=== PATIENT | male | born 1980 | race Caucasian/White ===

== ENCOUNTER 2023-07-09 22:49 | Inpatient (IN) ==
--- NOTE | 2023-07-09 23:18 | Emergency Department Note ---
Impression & Plan Tonsillar abscess, Acute epiglottitis Admit to the [facility] ED Provider Note NAME: MARLENY ALVAREZ AGE: 42 SEX: Male INFORMANT: Patient ED PROVIDER(S): Etelvina Cleaning DO CHIEF COMPLAINT: Enlarged left neck lymph node PLAN: Disposition: Admit to the [facility] MEDICAL DECISION MAKING: this is a 42-year-old male patient who presents to the emergency department with an enlarged lymph node in the left neck. He does describe it is uncomfortable to swallow. Mother noted that his voice was somewhat different. He describes feeling somewhat tired. He has a mild leukocytosis. H&H are stable. Renal function is normal. Electrolytes were unremarkable. Glucose was normal. Ultrasound of the neck showed lymphadenopathy could be reactive versus metastatic. The patient went on to have CT scan of the soft tissues of the neck along with the chest. This revealed evidence of a tonsillar abscess on the left with some involvement of the epiglottis. Patient was given IV Decadron along with IV Rocephin. The patient was monitored closely and had absolutely no respiratory distress Care/management discussed with: manager marketing communications and [facility] Triage Nursing notes: reviewed and agree with them. Vital Signs: reviewed and remarkable for tachycardia Differential Diagnosis: Reactive lymph adenopathy, thyroid mass, tonsillitis, URI, sinus infection, tonsillar abscess Diagnostics, independently interpreted by me: Imaging studies: Soft tissue neck ultrasound: As per stat rad Soft tissue neck CT: As per stat rad CT scan of the chest: As per stat rad HPI: 42 year old Male arrives for evaluation of left neck enlarged lymph node. Patient noted an enlarged gland on the left side of his neck. Has been feeling tired over the past couple of days. He describes it as feeling uncomfortable when he swallows. His mother noted that his voice sounded different and he had some significant nasal congestion. PAST MEDICAL HISTORY: None, SOCIAL HISTORY: The patient lives alone. He smoked 1 and half packs of cigarettes a day for about 10 years HOME MEDICATIONS: See list ALLERGIES: None VITALS: See Below PHYSICAL EXAMINATION: HEENT: Head - normocephalic and atraumatic. Pupils are equal, round, and reactive to light. Extraocular eye muscles are intact, and sclera are anicteric. Nose - moist nasal mucosa without discharge. Mouth - moist buccal mucosa. Oropharynx is mildly erythematous. There are some mild fullness noted to the left tonsillar pillar but no obvious edema or postnasal drip noted. Neck: Supple; no nuchal rigidity. There is a large left anterior cervical lymph node at the top of the chain easily palpable and mobile. There are no supraclavicular nodes palpated. There were no axillary nodes palpated. Heart: Tachycardic rate and regular rhythm. There is a normal S1 and S2 with no murmurs, clicks, or gallops appreciated. Lungs: Clear to auscultation bilaterally with no wheezes, rales, or rhonchi. Abdomen: Soft, completely nontender, nondistended, with good bowel sounds. There are no palpable pulsatile masses or hepatosplenomegaly. There is no guarding, rigidity, or rebound noted. Extremities: No evidence of cyanosis, clubbing, or edema. There are easily palpable peripheral pulses. Skin: warm and dry with good turgor and no rashes. Emergency department treatment: staff midwife/apprenticeship director, IV Decadron, IV normal saline bolus, IV normal saline drip, IV Rocephin Emergency department course: The patient was evaluated in room C6. A complete history and physical was performed. An IV lock was initiated and labs were drawn as above. Patient had a soft tissue neck ultrasound as described above. I reviewed laboratory studies and ultrasound results with the patient. He then went on to have a CT scan of the soft tissues of the neck and chest. Patient was bolused with IV normal saline solution. He was given a dose of IV Decadron. He was given a dose of IV Rocephin. He was placed on an IV normal saline drip. I discussed the case with the [facility] Hospitalist. Past Med/Surg History Medical History (Updated 07/10/23 @ 13:25 by Etelvina Cleaning DO) Health care maintenance No significant past medical history Surgical History H/O oral surgery History of biopsy tongue H/O tooth extraction wisdom teeth Family History Grandmother (Maternal) Carotid artery stenosis Hyperlipidemia Hyperthyroidism Grandfather (Maternal) No problems noted. Grandmother (Paternal) Colorectal cancer Grandfather (Paternal) Coronary heart disease Colorectal cancer Father Hyperlipidemia Prostate cancer Denies family history of Ovarian cancer Myocardial infarction Breast cancer Social History Smoking Status: Former smoker Age Started Using Tobacco: 19; Hx Alcohol Use: Yes Alcohol type: beer and wine Hx Substance Use: No Preferred Language: Frisian Communication Ability: Effective Visual Impairment: No Limitations Hearing Ability: Normal Supervisor Electric Motor Testing Required: No Beliefs That Will Affect Care: None marital status: Single Current Living Situation: Alone current occupational status: employed Other Information That Helps Us Care for You: No Feels Safe at Home: Yes Safety Concerns: Feels Safe At This Time Childhood Exposure to Second-Hand Smoke: No Dental Care, Regularly: Yes Physical Activity Frequency: Does not Exercise Seatbelt Use: always Sunscreen Use: Yes Allergies Allergies Allergy/AdvReac Type Severity Reaction Status Date / Time No Known Allergies Allergy Mild Verified 03/15/23 09:13 Home Meds Home Medications Medication Instructions Recorded Confirmed No Known Home Medications 02/08/19 07/10/23 Results & Data (ED) Vital Signs Vital Signs - 24 hr 07/09/23 22:53 07/10/23 01:23 07/10/23 01:25 Temperature 36.8 C Temperature Source Temporal Artery Scan Pulse Rate 118 H Pulse Rate [Right Finger] 115 H Respiratory Rate 18 18 Respiratory Effort / Characteristics Non-Labored Spontaneous Respiratory Depth Normal Respiratory Pattern Regular Blood Pressure 165/109 H Blood Pressure [Left Arm] 171/99 H Blood Pressure [Right Arm] 181/99 H Blood Pressure Mean 127 Blood Pressure Mean [Left Arm] 123 Blood Pressure Mean [Right Arm] 126 Blood Pressure Position Sitting Blood Pressure Position [Left Arm] Semi-fowlers Blood Pressure Position [Right Arm] Semi-fowlers Pulse Oximetry 99 98 Oxygen Delivery Method Room Air Room Air Sepsis Recent Fever Within 48 Hours No Sepsis New/Unexplained Change in Mental Status N/A Sepsis Action Taken by Nursing No Action Required 07/10/23 01:54 07/10/23 02:00 07/10/23 02:30 Temperature Temperature Source Pulse Rate 113 H 94 H 85 Pulse Rate [Right Finger] Respiratory Rate 12 12 Respiratory Effort / Characteristics Respiratory Depth Respiratory Pattern Blood Pressure 159/92 H 149/88 H Blood Pressure [Left Arm] Blood Pressure [Right Arm] Blood Pressure Mean 114 108 Blood Pressure Mean [Left Arm] Blood Pressure Mean [Right Arm] Blood Pressure Position Blood Pressure Position [Left Arm] Blood Pressure Position [Right Arm] Pulse Oximetry 97 96 Oxygen Delivery Method Sepsis Recent Fever Within 48 Hours Sepsis New/Unexplained Change in Mental Status Sepsis Action Taken by Nursing 07/10/23 03:00 07/10/23 03:30 Temperature Temperature Source Pulse Rate 128 H 88 Pulse Rate [Right Finger] Respiratory Rate 17 15 Respiratory Effort / Characteristics Respiratory Depth Respiratory Pattern Blood Pressure 172/104 H 157/92 H Blood Pressure [Left Arm] Blood Pressure [Right Arm] Blood Pressure Mean 126 113 Blood Pressure Mean [Left Arm] Blood Pressure Mean [Right Arm] Blood Pressure Position Blood Pressure Position [Left Arm] Blood Pressure Position [Right Arm] Pulse Oximetry 96 96 Oxygen Delivery Method Sepsis Recent Fever Within 48 Hours Sepsis New/Unexplained Change in Mental Status Sepsis Action Taken by Nursing Laboratory Data 07/09/23 23:20 07/09/23 23:20 Lab Results 07/09/23 07/10/23 Range/Units 23:20 03:00 WBC 13.24 H (4.8-10.8) K/ul RBC 5.17 (4.70-6.10) M/uL Hgb 16.4 (14.0-18.0) g/dl Hct 46.5 (42.0-52.0) % MCV 89.9 (80.0-100.0) fL MCH 31.7 (25.0-34.0) pg MCHC 35.3 (32.0-36.0) g/dL RDW Std Deviation 39.9 (36.4-46.3) fL RDW Coeff of Sharri 12.1 (11.5-14.5) % Plt Count 286 (130-400) K/uL MPV 9.8 (9.4-12.4) fL Immature Gran % (Auto) 0.5 % Neut % (Auto) 69.5 % Lymph % (Auto) 20.5 % Reynolds % (Auto) 7.2 % Eos % (Auto) 2.0 % Baso % (Auto) 0.3 % Neut # (Auto) 9.21 H (1.40-6.50) K/uL Lymph # (Auto) 2.71 (1.20-3.40) K/uL Reynolds # (Auto) 0.95 H (0.11-0.59) K/uL Eos # (Auto) 0.26 (0.00-0.50) K/uL Baso # (Auto) 0.04 (0.00-0.20) K/uL Immature Gran # (Auto) 0.07 (0.01-0.20) K/uL Sodium 140 (136-145) mmol/L Potassium 3.5 (3.5-5.1) mmol/L Chloride 106 (98-107) mmol/L Carbon Dioxide 25 (21-32) mmol/L Anion Gap 9 (3-11) BUN 7 (6-23) mg/dl Creatinine 0.88 (0.6-1.4) mg/dl Est Cr Clr Drug Dosing 91.6 ml/min Est GFR ( Amer) 122.8 ml/min Est GFR (Non-Af Amer) 106.0 ml/min BUN/Creatinine Ratio 8.0 L (10-20) Glucose 110 H (70-99(Fasting)) mg/dl Calcium 9.3 (8.6-10.3) mg/dl Total Bilirubin 0.3 (0.2-1.0) mg/dl AST 12 L (13-39) U/L ALT 14 (7-52) U/L Alkaline Phosphatase 97 (34-104) U/L Total Protein 7.6 (6.0-8.3) gm/dl Albumin 4.3 (3.4-5.0) gm/dl Globulin 3.3 (2.5-4.0) gm/dl Albumin/Globulin Ratio 1.3 (0.9-2) Adenovirus (PCR) Not Detected (NotDetected) B. pertussis DNA (PCR) Not Detected (NotDetected) B.parapertussis DNA PCR Not Detected (NotDetected) C. pneumoniae DNA (PCR) Not Detected (NotDetected) Coronavirus OC43 (PCR) Not Detected (NotDetected) Coronavirus HKU1 (PCR) Not Detected (NotDetected) Coronavirus 229E (PCR) Not Detected (NotDetected) SARS-CoV-2 (PCR) Not Detected (NotDetected) Coronavirus NL63 (PCR) Not Detected (NotDetected) Human Metapneumovir PCR Not Detected (NotDetected) Influenza Type A (PCR) Not Detected (NotDetected) Influenza Type B (PCR) Not Detected (NotDetected) M. pneumoniae (PCR) Not Detected (NotDetected) Parainfluenza 1 (PCR) Not Detected (NotDetected) Parainfluenza 2 (PCR) Not Detected (NotDetected) Parainfluenza 3 (PCR) Not Detected (NotDetected) Parainfluenza 4 (PCR) Not Detected (NotDetected) RSV (PCR) Not Detected (NotDetected) Entero/Rhino (PCR) Not Detected (NotDetected) Administered Medications Sodium Chloride (Nss) 500 mls @ 125 mls/hr IV .Q4H [facility] Stop: 08/09/23 02:59 Last Admin: 07/10/23 10:46 Dose: 125 mls/hr Documented By: Infusion: 07/10/23 10:46 Dose: Infused Documented By: Admin: 07/10/23 08:09 Dose: 125 mls/hr Documented By: Infusion: 07/10/23 08:09 Dose: Infused Documented By: Admin: 07/10/23 04:15 Dose: 125 mls/hr Documented By: ALYSE Potassium Chloride/Sodium Chloride (Normal Saline W/20 Meq Kcl) 20 meq in 1,000 mls @ 100 mls/hr IV .Q10H [facility]; Protocol Stop: 08/09/23 03:59 Last Admin: 07/10/23 04:29 Dose: 100 mls/hr Documented By: ALYSE Azithromycin 500 mg/ Dextrose 255 mls @ 125 mls/hr IV Q24H [facility] Stop: 07/20/23 03:59 Last Infusion: 07/10/23 06:42 Dose: Infused Documented By: Admin: 07/10/23 04:30 Dose: 125 mls/hr Documented By: ALYSE Ampicillin Sodium/Sulbactam Sodium 3,000 mg/ Sodium Chloride 100 mls @ 100 mls/hr IV Q6H [facility] Stop: 07/20/23 06:59 Last Admin: 07/10/23 13:05 Dose: 100 mls/hr Documented By: Infusion: 07/10/23 09:16 Dose: Infused Documented By: NRLeora Admin: 07/10/23 08:09 Dose: 100 mls/hr Documented By: MILENA Dexamethasone 6 mg/ Syringe 1.5 mls @ 1 mls/min IV Q8H [facility] Stop: 08/09/23 07:59 Last Admin: 07/10/23 08:08 Dose: 1 mls/min Documented By: MILENA Discontinued Medications Dexamethasone Sodium Phosphate (DexamethasonePf 10 Mg/Ml Vial) 10 mg IV NOW ONE Stop: 07/10/23 02:52 Last Admin: 07/10/23 03:01 Dose: 10 mg Documented By: ALYSE Sodium Chloride (Nss) 500 mls @ 999 mls/hr IV .Q31M ONE Stop: 07/10/23 03:21 Last Infusion: 07/10/23 03:56 Dose: Infused Documented By: Admin: 07/10/23 03:02 Dose: 999 mls/hr Documented By: ALYSE Ceftriaxone Sodium (Rocephin) 1,000 mg in 50 mls @ 100 mls/hr IV NOW STA Stop: 07/10/23 03:32 Last Infusion: 07/10/23 04:49 Dose: Infused Documented By: Admin: 07/10/23 04:16 Dose: 100 mls/hr Documented By: ALYSE Ioversol (Optiray 320 500ml) 100 ml IV ONCE ONE Stop: 07/10/23 01:56 Last Admin: 07/10/23 01:56 Dose: 84 ml Documented By: TOMEKA Imaging Data Radiologist's Impression: Chest CT 07/10/23 01:26 Exam(s): CT CHEST With Contrast IV Amt: 84 ML OPTIRAY 320 EXAM: CT Chest With Intravenous Contrast CLINICAL HISTORY: eval for lymphadenopathy or pulm pathology. TECHNIQUE: Axial computed tomography images of the chest with intravenous contrast. Automated exposure control was utilized for the study. A dose lowering technique was utilized adhering to the principles of ALARA. CONTRAST: Patient received 84 ML OPTIRAY 320 of IV contrast COMPARISON: No relevant prior studies available. FINDINGS: Lungs: No focal consolidation. No mass. Pleural space: Unremarkable. No pneumothorax. No significant effusion. Heart: Unremarkable. No cardiomegaly. No significant pericardial effusion. No significant coronary artery calcifications. Bones/joints: Unremarkable. No acute fracture. No dislocation. Soft tissues: Unremarkable. Vasculature: Unremarkable. No thoracic aortic aneurysm. Lymph nodes: The left supraclavicular lymphadenopathy is not identified on this examination. No axillary, mediastinal or hilar lymphadenopathy noted. IMPRESSION: No significant abnormality identified involving the chest/thorax. Please see the CT report of the cervical soft tissues for further significant findings. Electronically signed by: Ryley Luke MD 07/10/23 02:46 AM Soft Tissue Neck CT 07/10/23 01:26 CR Exam(s): CT NECK With Contrast IV Amt: 84 ML OPTIRAY 320 EXAM: CT Neck With Intravenous Contrast CLINICAL HISTORY: eval lymphadenopathy vs. abnormal nodes. TECHNIQUE: Axial computed tomography images of the neck with intravenous contrast. Automated exposure control was utilized for the study. A dose lowering technique was utilized adhering to the principles of ALARA. CONTRAST: Patient received 84 ML OPTIRAY 320 of IV contrast COMPARISON: No relevant prior studies available. FINDINGS: Oropharynx: There is a rim-enhancing left tonsillar abscess, measuring 1.2 cm in diameter. Both palatine tonsils are enlarged. No peritonsillar inflammatory changes. Hypopharynx: Unremarkable. Larynx: There is hypodense thickening of the anterior aspect of the epiglottis, measuring up to 13 mm in diameter (series 601; images 40-45). Trachea: Unremarkable. Retropharyngeal space: Unremarkable. Submandibular/parotid glands: Unremarkable. Glands are normal in size. Thyroid: Unremarkable. No enlarged or calcified nodules. Bones/joints: No acute fracture. Soft tissues: Unremarkable. Vasculature: No acute findings. Lymph nodes: Left anterior and posterior cervical chain enlarged lymph nodes measuring up to 15 mm in short axis diameter. Lung apices: Unremarkable as visualized. Other findings: The parapharyngeal spaces are maintained. IMPRESSION: 1. There is a rim-enhancing left tonsillar abscess, measuring 1.2 cm in diameter. 2. There is hypodense thickening of the anterior aspect of the epiglottis, measuring up to 13 mm in diameter (series 601; images 40-45). This is presumed edema from the adjacent enlarged tonsils. However, this finding is concerning for impending airway compromise. Consider urgent ENT consultation, as indicated. 3. Left anterior and posterior cervical chain enlarged lymph nodes measuring up to 15 mm in short axis diameter. Presumed reactive from the left tonsillar process. Communications: Verify Receipt Electronically signed by: Ryley Luke MD 07/10/23 02:44 AM Discharge Plan Visit Data Chief Complaint: Throat Pain Stated Complaint: ISSUES SWALLOWING ED Provider: Etelvina Cleaning Discharge Problem: Tonsillar abscess, Acute epiglottitis Patient Disposition: Admitted As Inpatient Discharge Instructions Interventions: ED Discharge Assessment Last Done: 07/10/23 05:03 Discharge Problem: Acute epiglottitis Qualifiers: Airway obstruction: without obstruction Qualified Code(s): J05.10 - Acute epiglottitis without obstruction
[2023-07-09 23:51] LABS: Albumin Globulin Ratio 1.3 (0.9-2); Albumin Level 4.3 gm/dl (3.4-5.0); Bilirubin,Total 0.3 mg/dl (0.2-1.0); Calcium 9.3 mg/dl (8.6-10.3); Creatinine Clr Calc Pharmacy 91.6 ml/min; Est GFR (African American) 122.8 ml/min; Globulin 3.3 gm/dl (2.5-4.0); Potassium 3.5 mmol/L (3.5-5.1); Total Protein 7.6 gm/dl (6.0-8.3)
[2023-07-09 23:55] LABS: Basophils # (auto) 0.04 K/uL (0.00-0.20); Basophils % (auto) 0.3 %; Eosinophils # (auto) 0.26 K/uL (0.00-0.50); Hematocrit (blood only) 46.5 % (42.0-52.0); Hemoglobin 16.4 g/dl (14.0-18.0); Immature Granulocytes # (auto) 0.07 K/uL (0.01-0.20); Immature Granulocytes % (auto) 0.5 %; Lymphocytes # (auto) 2.71 K/uL (1.20-3.40); Lymphocytes % (auto) 20.5 %; Mean Corpuscular Hemoglobin 31.7 pg (25.0-34.0); Mean Corpuscular Hgb Conc 35.3 g/dL (32.0-36.0); Mean Corpuscular Volume 89.9 fL (80.0-100.0); Mean Platelet Volume 9.8 fL (9.4-12.4); Monocytes # (auto) 0.95 K/uL (0.11-0.59); Monocytes % (auto) 7.2 %; Neutrophils # (auto) 9.21 K/uL (1.40-6.50); Neutrophils % (auto) 69.5 %; Platelet Count 286 K/uL (130-400); RDW Coefficient of Variation 12.1 % (11.5-14.5); RDW Standard Deviation 39.9 fL (36.4-46.3); Red Blood Count 5.17 M/uL (4.70-6.10); White Blood Count 13.24 K/ul (4.8-10.8)
--- NOTE | 2023-07-10 01:07 | Ultrasound Report ---
Exam(s): US SOFT TISSUE EXAM: US Soft Tissues of the Neck CLINICAL HISTORY: left neck lymph node enlarged. TECHNIQUE: Real-time ultrasound scan of the soft tissues of the neck with image documentation. COMPARISON: No relevant prior studies available. FINDINGS: Soft tissues: No abscess. No foreign body. Lymph nodes: Extensive enlarged abnormal-appearing cervical lymph nodes are identified with hyperdynamic vascular flow, measuring up to 12 mm in short axis diameter. IMPRESSION: Extensive enlarged abnormal-appearing cervical lymph nodes are identified with hyperdynamic vascular flow, measuring up to 12 mm in short axis diameter. Findings may represent reactive lymphadenopathy or metastatic disease. Further potential additional imaging should be based on clinical criteria. Electronically signed by: Ryley Luke MD 07/10/23 01:06 AM
[2023-07-10] MEDS ORDERED: OPTIRAY 320 500ml IV ONE (01:55)
--- NOTE | 2023-07-10 02:45 | CT Scan Report ---
Exam(s): CT NECK With Contrast IV Amt: 84 ML OPTIRAY 320 EXAM: CT Neck With Intravenous Contrast CLINICAL HISTORY: eval lymphadenopathy vs. abnormal nodes. TECHNIQUE: Axial computed tomography images of the neck with intravenous contrast. Automated exposure control was utilized for the study. A dose lowering technique was utilized adhering to the principles of ALARA. CONTRAST: Patient received 84 ML OPTIRAY 320 of IV contrast COMPARISON: No relevant prior studies available. FINDINGS: Oropharynx: There is a rim-enhancing left tonsillar abscess, measuring 1.2 cm in diameter. Both palatine tonsils are enlarged. No peritonsillar inflammatory changes. Hypopharynx: Unremarkable. Larynx: There is hypodense thickening of the anterior aspect of the epiglottis, measuring up to 13 mm in diameter (series 601; images 40-45). Trachea: Unremarkable. Retropharyngeal space: Unremarkable. Submandibular/parotid glands: Unremarkable. Glands are normal in size. Thyroid: Unremarkable. No enlarged or calcified nodules. Bones/joints: No acute fracture. Soft tissues: Unremarkable. Vasculature: No acute findings. Lymph nodes: Left anterior and posterior cervical chain enlarged lymph nodes measuring up to 15 mm in short axis diameter. Lung apices: Unremarkable as visualized. Other findings: The parapharyngeal spaces are maintained. IMPRESSION: 1. There is a rim-enhancing left tonsillar abscess, measuring 1.2 cm in diameter. 2. There is hypodense thickening of the anterior aspect of the epiglottis, measuring up to 13 mm in diameter (series 601; images 40-45). This is presumed edema from the adjacent enlarged tonsils. However, this finding is concerning for impending airway compromise. Consider urgent ENT consultation, as indicated. 3. Left anterior and posterior cervical chain enlarged lymph nodes measuring up to 15 mm in short axis diameter. Presumed reactive from the left tonsillar process. Communications: Verify Receipt Electronically signed by: Ryley Luke MD 07/10/23 02:44 AM
--- NOTE | 2023-07-10 02:47 | CT Scan Report ---
Exam(s): CT CHEST With Contrast IV Amt: 84 ML OPTIRAY 320 EXAM: CT Chest With Intravenous Contrast CLINICAL HISTORY: eval for lymphadenopathy or pulm pathology. TECHNIQUE: Axial computed tomography images of the chest with intravenous contrast. Automated exposure control was utilized for the study. A dose lowering technique was utilized adhering to the principles of ALARA. CONTRAST: Patient received 84 ML OPTIRAY 320 of IV contrast COMPARISON: No relevant prior studies available. FINDINGS: Lungs: No focal consolidation. No mass. Pleural space: Unremarkable. No pneumothorax. No significant effusion. Heart: Unremarkable. No cardiomegaly. No significant pericardial effusion. No significant coronary artery calcifications. Bones/joints: Unremarkable. No acute fracture. No dislocation. Soft tissues: Unremarkable. Vasculature: Unremarkable. No thoracic aortic aneurysm. Lymph nodes: The left supraclavicular lymphadenopathy is not identified on this examination. No axillary, mediastinal or hilar lymphadenopathy noted. IMPRESSION: No significant abnormality identified involving the chest/thorax. Please see the CT report of the cervical soft tissues for further significant findings. Electronically signed by: Ryley Luke MD 07/10/23 02:46 AM
[2023-07-10] MEDS ORDERED: SODIUM CHLORIDE 0.9% 500 ML IV ONE (02:51)
[2023-07-10] MEDS ORDERED: dexAMETHasone**PF** 10 MG/ML VIAL IV ONE (02:51)
[2023-07-10] MEDS ORDERED: cefTRIAXone SODIUM 1,000 MG/50 ML BAG IV STA (03:03)
--- NOTE | 2023-07-10 03:55 | History & Physical Report ---
Date of Service July 10, 2023 Assessment & Plan (1) Tonsillar abscess: Plan Left tonsillar abscess- CT soft tissue of the neck with rim-enhancing left tonsillar abscess 1.2 cm Adjacent edema of epiglottis Left anterior and posterior cervical lymphadenopathy Received dexamethasone 10 mg IV from the ED, ceftriaxone 1 g IV and normal saline 500 mill bolus. While in the ED azithromycin 500 mg IV added Admit on Unasyn 3 g IV every 6 hours, and azithromycin 500 mg IV daily N.p.o. Dexamethasone 6 mg IV every 8 hours NSS + KCl 20 MEQ's at 100 mL/h Consult MFS/ENT Patient without signs of stridor or airway compromise History of Present Illness Chief Complaint: The patient presents to the emergency department with complaint of throat feeling dry and irritated beginning about 6 days ago, and over the past 24 hours has noted becoming more dry and more difficult to swallow. He also notes an enlarged lymph node left side of neck Primary Care Provider: Pj Becerril MD The patient is a 42-year-old male with no significant past medical history, who presents to the emergency department with worsening throat symptoms, in partic ular left side as noted above. Workup in the emergency department included a ultrasound of head and neck, which showed extensive reactive lymphadenopathy versus metastatic disease. CT scan of chest was negative. CT scan of soft tissue of neck showed a rim-enhancing left tonsillar abscess measuring 1.2 cm in diameter. There was hypodense thickening of the anterior aspect of the epiglottis presumed edema from the adjacent enlarged tonsils. Concerning for impending airway compromise. Left anterior and posterior cervical chain enlarged lymph nodes measuring up to 15 mm in short axis diameter, presumed reactive from the left tonsillar process. Patient was found to be quite comfortable, showed no signs of airway compromise, no stridor. Allergies Allergy/AdvReac Type Severity Reaction Status Date / Time No Known Allergies Allergy Mild Verified 03/15/23 09:13 Home Medications Medication Instructions Recorded Confirmed Type No Known Home Medications 02/08/19 03/15/23 History Past Med/Surg History Medical History (Updated 07/10/23 @ 06:42 by Amando Moses MD) Health care maintenance No significant past medical history Surgical History H/O oral surgery History of biopsy tongue H/O tooth extraction wisdom teeth Family History Grandmother (Maternal) Carotid artery stenosis Hyperlipidemia Hyperthyroidism Grandfather (Maternal) No problems noted. Grandmother (Paternal) Colorectal cancer Grandfather (Paternal) Coronary heart disease Colorectal cancer Father Hyperlipidemia Prostate cancer Denies family history of Ovarian cancer Myocardial infarction Breast cancer Social History Smoking Status: Former smoker Age Started Using Tobacco: 19; Hx Alcohol Use: Yes Alcohol type: beer and wine Hx Substance Use: No Preferred Language: Icelandic Communication Ability: Effective Visual Impairment: No Limitations Hearing Ability: Normal Enterprise Resource Analyst Required: No Beliefs That Will Affect Care: None marital status: Single Current Living Situation: Alone current occupational status: employed Other Information That Helps Us Care for You: No Feels Safe at Home: Yes Safety Concerns: Feels Safe At This Time Childhood Exposure to Second-Hand Smoke: No Dental Care, Regularly: Yes Physical Activity Frequency: Does not Exercise Seatbelt Use: always Sunscreen Use: Yes Review of Systems Review of Systems: The patient denies chest pain, palpitations, shortness of breath, dyspnea on exertion, cough, lower extremity swelling, fevers, chills, sweats, weight change, fatigue, nausea, vomiting, diarrhea , constipation, abdominal pain, pelvic pain, blood in urine or stool, dysuria, urinary frequency or urgency, lightheadedness, dizziness, headache, memory loss, loss of consciousness, rash, abnormal bruising or bleeding, imbalance, focal or generalized weakness, numbness or tingling in arms or legs, generalized arthralgias or myalgias, back or neck pain, or night sweats. The review of systems is otherwise negative other than for that already noted above, and at least 10 systems have been reviewed. Physical Exam Physical Exam: The patient is awake, alert and oriented 3, well developed and well nourished, normocephalic and atraumatic, lying in bed and in no acute distress. HEENT--PERRL, EOMI, mucous membranes and oropharynx mildly dry. Neck--supple. No JVD. No bruits. Enlarged, tender left-sided anterior cervical lymph nodes Heart--normal S1 and S2. No murmurs, rubs or gallops. Lungs--clear bilaterally, no respiratory distress, no accessory muscle use. Abdomen--normal bowel sounds and soft. Nontender. Nondistended, no hernias or masses, no organomegaly. Extremities--no cyanosis or clubbing. No edema. Dermatologic--normal skin turgor, normal color, no abnormal lymph nodes, no rash. Neurologic--cranial nerves II through XII grossly intact. Rheumatologic--normal range of motion. Psychiatric--normal affect. Results & Data Results & Data Vital Signs (Past 12 Hours) Vital Signs Temp Pulse Pulse Resp BP BP BP 07/10/23 03:00 128 H 17 172/104 H 07/10/23 02:30 85 12 149/88 H 07/10/23 02:00 94 H 12 159/92 H 07/10/23 01:54 113 H 07/10/23 01:25 171/99 H 07/10/23 01:23 115 H 18 181/99 H 07/09/23 22:53 36.8 C 118 H 18 165/109 H Pulse Ox O2 Del Method 07/10/23 03:00 96 07/10/23 02:30 96 07/10/23 02:00 97 07/10/23 01:54 07/10/23 01:25 07/10/23 01:23 98 Room Air 07/09/23 22:53 99 Room Air Laboratory Results Laboratory Results WBC 13.24 K/ul (4.8-10.8) H 07/09/23 23:20 RBC 5.17 M/uL (4.70-6.10) 07/09/23 23:20 Hgb 16.4 g/dl (14.0-18.0) 07/09/23 23:20 Hct 46.5 % (42.0-52.0) 07/09/23 23:20 MCV 89.9 fL (80.0-100.0) 07/09/23 23:20 MCH 31.7 pg (25.0-34.0) 07/09/23 23:20 MCHC 35.3 g/dL (32.0-36.0) 07/09/23 23:20 RDW Std Deviation 39.9 fL (36.4-46.3) 07/09/23 23:20 RDW Coeff of Sharri 12.1 % (11.5-14.5) 07/09/23 23:20 Plt Count 286 K/uL (130-400) 07/09/23 23:20 MPV 9.8 fL (9.4-12.4) 07/09/23 23:20 Immature Gran % (Auto) 0.5 % 07/09/23 23:20 Neut % (Auto) 69.5 % 07/09/23 23:20 Lymph % (Auto) 20.5 % 07/09/23 23:20 Jewell % (Auto) 7.2 % 07/09/23 23:20 Eos % (Auto) 2.0 % 07/09/23 23:20 Baso % (Auto) 0.3 % 07/09/23 23:20 Neut # (Auto) 9.21 K/uL (1.40-6.50) H 07/09/23 23:20 Lymph # (Auto) 2.71 K/uL (1.20-3.40) 07/09/23 23:20 Jewell # (Auto) 0.95 K/uL (0.11-0.59) H 07/09/23 23:20 Eos # (Auto) 0.26 K/uL (0.00-0.50) 07/09/23 23:20 Baso # (Auto) 0.04 K/uL (0.00-0.20) 07/09/23 23:20 Immature Gran # (Auto) 0.07 K/uL (0.01-0.20) 07/09/23 23:20 Sodium 140 mmol/L (136-145) 07/09/23 23:20 Potassium 3.5 mmol/L (3.5-5.1) 07/09/23 23:20 Chloride 106 mmol/L (98-107) 07/09/23 23:20 Carbon Dioxide 25 mmol/L (21-32) 07/09/23 23:20 Anion Gap 9 (3-11) 07/09/23 23:20 BUN 7 mg/dl (6-23) 07/09/23 23:20 Creatinine 0.88 mg/dl (0.6-1.4) 07/09/23 23:20 Est Cr Clr Drug Dosing 91.6 ml/min 07/09/23 23:20 Est GFR ( Amer) 122.8 ml/min 07/09/23 23:20 Est GFR (Non-Af Amer) 106.0 ml/min 07/09/23 23:20 BUN/Creatinine Ratio 8.0 (10-20) L 07/09/23 23:20 Glucose 110 mg/dl (70-99(Fasting)) H 07/09/23 23:20 Calcium 9.3 mg/dl (8.6-10.3) 07/09/23 23:20 Total Bilirubin 0.3 mg/dl (0.2-1.0) 07/09/23 23:20 AST 12 U/L (13-39) L 07/09/23 23:20 ALT 14 U/L (7-52) 07/09/23 23:20 Alkaline Phosphatase 97 U/L (34-104) 07/09/23 23:20 Total Protein 7.6 gm/dl (6.0-8.3) 07/09/23 23:20 Albumin 4.3 gm/dl (3.4-5.0) 07/09/23 23:20 Globulin 3.3 gm/dl (2.5-4.0) 07/09/23 23:20 Albumin/Globulin Ratio 1.3 (0.9-2) 07/09/23 23:20 Adenovirus (PCR) Not Detected (NotDetected) 07/10/23 03:00 B. pertussis DNA (PCR) Not Detected (NotDetected) 07/10/23 03:00 B.parapertussis DNA PCR Not Detected (NotDetected) 07/10/23 03:00 C. pneumoniae DNA (PCR) Not Detected (NotDetected) 07/10/23 03:00 Coronavirus OC43 (PCR) Not Detected (NotDetected) 07/10/23 03:00 Coronavirus HKU1 (PCR) Not Detected (NotDetected) 07/10/23 03:00 Coronavirus 229E (PCR) Not Detected (NotDetected) 07/10/23 03:00 SARS-CoV-2 (PCR) Not Detected (NotDetected) 07/10/23 03:00 Coronavirus NL63 (PCR) Not Detected (NotDetected) 07/10/23 03:00 Human Metapneumovir PCR Not Detected (NotDetected) 07/10/23 03:00 Influenza Type A (PCR) Not Detected (NotDetected) 07/10/23 03:00 Influenza Type B (PCR) Not Detected (NotDetected) 07/10/23 03:00 M. pneumoniae (PCR) Not Detected (NotDetected) 07/10/23 03:00 Parainfluenza 1 (PCR) Not Detected (NotDetected) 07/10/23 03:00 Parainfluenza 2 (PCR) Not Detected (NotDetected) 07/10/23 03:00 Parainfluenza 3 (PCR) Not Detected (NotDetected) 07/10/23 03:00 Parainfluenza 4 (PCR) Not Detected (NotDetected) 07/10/23 03:00 RSV (PCR) Not Detected (NotDetected) 07/10/23 03:00 Entero/Rhino (PCR) Not Detected (NotDetected) 07/10/23 03:00 Impressions Head/Neck Ultrasound 07/09/23 23:13 Exam(s): US SOFT TISSUE EXAM: US Soft Tissues of the Neck CLINICAL HISTORY: left neck lymph node enlarged. TECHNIQUE: Real-time ultrasound scan of the soft tissues of the neck with image documentation. COMPARISON: No relevant prior studies available. FINDINGS: Soft tissues: No abscess. No foreign body. Lymph nodes: Extensive enlarged abnormal-appearing cervical lymph nodes are identified with hyperdynamic vascular flow, measuring up to 12 mm in short axis diameter. IMPRESSION: Extensive enlarged abnormal-appearing cervical lymph nodes are identified with hyperdynamic vascular flow, measuring up to 12 mm in short axis diameter. Findings may represent reactive lymphadenopathy or metastatic disease. Further potential additional imaging should be based on clinical criteria. Electronically signed by: Ryley Luke MD 07/10/23 01:[address] 07/10/23 01:26 Exam(s): CT CHEST With Contrast IV Amt: 84 ML OPTIRAY 320 EXAM: CT Chest With Intravenous Contrast CLINICAL HISTORY: eval for lymphadenopathy or pulm pathology. TECHNIQUE: Axial computed tomography images of the chest with intravenous contrast. Automated exposure control was utilized for the study. A dose lowering technique was utilized adhering to the principles of ALARA. CONTRAST: Patient received 84 ML OPTIRAY 320 of IV contrast COMPARISON: No relevant prior studies available. FINDINGS: Lungs: No focal consolidation. No mass. Pleural space: Unremarkable. No pneumothorax. No significant effusion. Heart: Unremarkable. No cardiomegaly. No significant pericardial effusion. No significant coronary artery calcifications. Bones/joints: Unremarkable. No acute fracture. No dislocation. Soft tissues: Unremarkable. Vasculature: Unremarkable. No thoracic aortic aneurysm. Lymph nodes: The left supraclavicular lymphadenopathy is not identified on this examination. No axillary, mediastinal or hilar lymphadenopathy noted. IMPRESSION: No significant abnormality identified involving the chest/thorax. Please see the CT report of the cervical soft tissues for further significant findings. Electronically signed by: Ryley Luke MD 07/10/23 02:46 AM Soft Tissue Neck CT 07/10/23 01:26 CR Exam(s): CT NECK With Contrast IV Amt: 84 ML OPTIRAY 320 EXAM: CT Neck With Intravenous Contrast CLINICAL HISTORY: eval lymphadenopathy vs. abnormal nodes. TECHNIQUE: Axial computed tomography images of the neck with intravenous contrast. Automated exposure control was utilized for the study. A dose lowering technique was utilized adhering to the principles of ALARA. CONTRAST: Patient received 84 ML OPTIRAY 320 of IV contrast COMPARISON: No relevant prior studies available. FINDINGS: Oropharynx: There is a rim-enhancing left tonsillar abscess, measuring 1.2 cm in diameter. Both palatine tonsils are enlarged. No peritonsillar inflammatory changes. Hypopharynx: Unremarkable. Larynx: There is hypodense thickening of the anterior aspect of the epiglottis, measuring up to 13 mm in diameter (series 601; images 40-45). Trachea: Unremarkable. Retropharyngeal space: Unremarkable. Submandibular/parotid glands: Unremarkable. Glands are normal in size. Thyroid: Unremarkable. No enlarged or calcified nodules. Bones/joints: No acute fracture. Soft tissues: Unremarkable. Vasculature: No acute findings. Lymph nodes: Left anterior and posterior cervical chain enlarged lymph nodes measuring up to 15 mm in short axis diameter. Lung apices: Unremarkable as visualized. Other findings: The parapharyngeal spaces are maintained. IMPRESSION: 1. There is a rim-enhancing left tonsillar abscess, measuring 1.2 cm in diameter. 2. There is hypodense thickening of the anterior aspect of the epiglottis, measuring up to 13 mm in diameter (series 601; images 40-45). This is presumed edema from the adjacent enlarged tonsils. However, this finding is concerning for impending airway compromise. Consider urgent ENT consultation, as indicated. 3. Left anterior and posterior cervical chain enlarged lymph nodes measuring up to 15 mm in short axis diameter. Presumed reactive from the left tonsillar process. Communications: Verify Receipt Electronically signed by: Ryley Luke MD 07/10/23 02:44 AM Code Status & VTE Plan Code Status Full code VTE Prophylaxis Plan VTE Prophylaxis will be ordered: Yes PG Care Time/CCT Total # of Minutes Spent Total Time Spent with Patient: Total time spent is greater than 50% in coordination of care (as documented) at patient's floor/unit and/or counseling patient: Coding Level of Care Code 87587 INT INP/OBS CARE MIN Diagnoses Tonsillar abscess J36
[2023-07-10 04:10] LABS: Adenovirus PCR Not Detected (NotDetected); Bordetella parapertussis PCR Not Detected (NotDetected); Bordetella pertussis PCR Not Detected (NotDetected); Chlamydia pneumoniae PCR Not Detected (NotDetected); Coronavirus 229E PCR Not Detected (NotDetected); Coronavirus CoV-2 (COVID19)PCR Not Detected (NotDetected); Coronavirus HKU1 PCR Not Detected (NotDetected); Coronavirus NL63 PCR Not Detected (NotDetected); Coronavirus OC43PCR Not Detected (NotDetected); Human Metapneumovirus PCR Not Detected (NotDetected); Influenza A PCR Not Detected (NotDetected); Influenza B PCR Not Detected (NotDetected); Mycoplasma pneumoniae PCR Not Detected (NotDetected); Parainfluenza Virus 1 PCR Not Detected (NotDetected); Parainfluenza Virus 2 PCR Not Detected (NotDetected); Parainfluenza Virus 3 PCR Not Detected (NotDetected); Parainfluenza Virus 4 PCR Not Detected (NotDetected); Respiratory Syncytial VirusPCR Not Detected (NotDetected); Rhinovirus/Enterovirus PCR Not Detected (NotDetected)
[2023-07-10] MEDS: SODIUM CHLORIDE 0.9% 500 ML IV SCH ×6 (04:15→23:00)
[2023-07-10] MEDS: NSS + 20MEQ KCL 20 MEQ/1,000 ML BAG IV SCH ×3 (04:29→23:42)
[2023-07-10] MEDS: AZITHROMYCIN 500 MG in DEXTROSE 5% 250 ML IV SCH (04:30)
[2023-07-10] MEDS ORDERED: dexAMETHasone 4 MG in SYRINGE 0 ML IV SCH (08:00)
[2023-07-10] MEDS: dexAMETHasone 6 MG in SYRINGE 0 ML IV SCH ×3 (08:08→23:42)
[2023-07-10] MEDS: AMPICILLIN/SULBACTAM SOD 3,000 MG in SODIUM CHLOR 0.9% MINI-B 100 ML IV SCH ×3 (08:09→18:30)
[2023-07-11] MEDS: AZITHROMYCIN 500 MG in DEXTROSE 5% 250 ML IV SCH (03:41)
[2023-07-11] MEDS: AMPICILLIN/SULBACTAM SOD 3,000 MG in SODIUM CHLOR 0.9% MINI-B 100 ML IV SCH ×2 (06:29)
[2023-07-11 07:07] LABS: Basophils # (auto) 0.02 K/uL (0.00-0.20); Basophils % (auto) 0.1 %; Hemoglobin 13.9 g/dl (14.0-18.0); Immature Granulocytes # (auto) 0.12 K/uL (0.01-0.20); Immature Granulocytes % (auto) 0.7 %; Lymphocytes # (auto) 1.42 K/uL (1.20-3.40); Lymphocytes % (auto) 8.6 %; Mean Corpuscular Hemoglobin 31.4 pg (25.0-34.0); Mean Corpuscular Hgb Conc 34.8 g/dL (32.0-36.0); Mean Corpuscular Volume 90.3 fL (80.0-100.0); Monocytes # (auto) 0.55 K/uL (0.11-0.59); Monocytes % (auto) 3.3 %; Neutrophils # (auto) 14.37 K/uL (1.40-6.50); Neutrophils % (auto) 87.3 %; Platelet Count 256 K/uL (130-400); RDW Coefficient of Variation 12.1 % (11.5-14.5); RDW Standard Deviation 40.4 fL (36.4-46.3); Red Blood Count 4.43 M/uL (4.70-6.10); White Blood Count 16.48 K/ul (4.8-10.8)
[2023-07-11 07:35] LABS: Albumin Globulin Ratio 1.4 (0.9-2); Albumin Level 3.6 gm/dl (3.4-5.0); BUN Creatinine Ratio 11.3 (10-20); Bilirubin,Total 0.2 mg/dl (0.2-1.0); Creatinine Clr Calc Pharmacy 100.7 ml/min; Est GFR (African American) 127.7 ml/min; Est GFR (Non-African American) 110.2 ml/min; Globulin 2.5 gm/dl (2.5-4.0); Magnesium 1.9 mg/dl (1.7-2.4); Potassium 4.2 mmol/L (3.5-5.1); Total Protein 6.1 gm/dl (6.0-8.3)
[2023-07-11] MEDS: dexAMETHasone 6 MG in SYRINGE 0 ML IV SCH (08:03)
--- NOTE | 2023-07-11 10:24 | Oral/Maxillofacial Consult ---
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 He was feeling better, now able to swallow and less pain. 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 He can talk, swallow and eat better. Overall feels much better Soft tissue: floor of the mouth, tongue, hard/soft palate, posterior pharyngeal area all with in normal limits, no pathology or abnormal findings noted. No lesions noted that require I&D Oral Care: Overall oral care is good Occlusion: Class I TMJ exam: No pop, clicking, pain, good ROM, No history of TMJ injury or dysfunction Periodontal exam: Healthy gingival tissue without evidence of periodontal pathology. Head/Neck exam: Neck is supple, FROM, Able to extend and flex neck w/o difficulty, no masses, no abnormalities, no airway issues, no evidence of sleep apnea. Treatment Plan: No surgical intervention needed Can be Discharged on oral antibiotics and Peridex Should have follow up with Dr Becerril and Dr Leach. I reviewed the treatment plan and consent with the patient Understanding was expressed. Time was given for questions regarding what is needed for home care and follow up May be discharged on orl antibiotics and Peridex mouth rinse Allergies Allergy/AdvReac Type Severity Reaction Status Date / Time No Known Allergies Allergy Mild Verified 03/15/23 09:13 Home Medications Medication Instructions Recorded Confirmed Type No Known Home Medications 02/08/19 07/10/23 History Patient History Medical History (Updated 07/11/23 @ 10:23 by Sridhar Leach DMD) Health care maintenance No significant past medical history Surgical History H/O oral surgery History of biopsy tongue H/O tooth extraction wisdom teeth Family History Grandmother (Maternal) Carotid artery stenosis Hyperlipidemia Hyperthyroidism Grandfather (Maternal) No problems noted. Grandmother (Paternal) Colorectal cancer Grandfather (Paternal) Coronary heart disease Colorectal cancer Father Hyperlipidemia Prostate cancer Denies family history of Ovarian cancer Myocardial infarction Breast cancer Social History Smoking Status: Former smoker Age Started Using Tobacco: 19; Hx Alcohol Use: Yes Alcohol type: beer and wine Hx Substance Use: No Preferred Language: Portuguese Communication Ability: Effective Visual Impairment: No Limitations Hearing Ability: Normal Raftsman Required: No Beliefs That Will Affect Care: None marital status: Single Current Living Situation: Alone current occupational status: employed Other Information That Helps Us Care for You: No Feels Safe at Home: Yes Safety Concerns: Feels Safe At This Time Childhood Exposure to Second-Hand Smoke: No Dental Care, Regularly: Yes Physical Activity Frequency: Does not Exercise Seatbelt Use: always Sunscreen Use: Yes Results & Data Vital Signs (Past 12 Hours) Vital Signs Temp Pulse Pulse Resp BP Pulse Ox O2 Del Method 07/11/23 08:00 Room Air 07/11/23 07:48 36.6 C 89 17 123/79 95 Room Air 07/11/23 07:00 75 07/11/23 03:36 36.5 C 101 H 18 130/77 97 Room Air 07/10/23 23:30 36.4 C L 100 H 16 149/94 H 96 Room Air 07/10/23 23:20 108 H PG Care Time/CCT Total # of Minutes Spent Total Time Spent with Patient: Total time spent is greater than 50% in coordination of care (as documented) at patient's floor/unit and/or counseling patient: Coding Level of Care Code 49847 IN/OBS CONSULT LVL 3,45M Diagnoses Tonsillar abscess J36 Peritonsillar abscess determined by examination J36
[2023-07-11] MEDS: NSS + 20MEQ KCL 20 MEQ/1,000 ML BAG IV SCH (11:02)
--- NOTE | 2023-07-11 12:55 | Discharge Summary ---
Date of Service July 11, 2023 Admission HPI Per Admitting Provider The patient is a 42-year-old male with no significant past medical history, who presents to the emergency department with worsening throat symptoms, in particular left side as noted above. Workup in the emergency department included a ultrasound of head and neck, which showed extensive reactive lymphadenopathy versus metastatic disease. CT scan of chest was negative. CT scan of soft tissue of neck showed a rim-enhancing left tonsillar abscess measuring 1.2 cm in diameter. There was hypodense thickening of the anterior aspect of the epiglottis presumed edema from the adjacent enlarged tonsils. Concerning for impending airway compromise. Left anterior and posterior cervical chain enlarged lymph nodes measuring up to 15 mm in short axis diameter, presumed reactive from the left tonsillar process. Patient was found to be quite comfortable, showed no signs of airway compromise, no stridor. Principal Diagnosis Left tonsillar abscess Discharge Exam The patient is awake, alert and oriented 3, well developed and well nourished, normocephalic and atraumatic, lying in bed and in no acute distress. HEENT--PERRL, EOMI, mucous membranes and oropharynx mildly dry Neck--supple. No JVD. No bruits. Thyroid normal, trachea midline, no adenopathy. Heart--normal S1 and S2. No murmurs, rubs or gallops. Lungs--clear bilaterally, no respiratory distress, no accessory muscle use. Abdomen--normal bowel sounds and soft. Mild epigastric and left sided abdominal pain Extremities--no cyanosis or clubbing. No edema. Dermatologic--normal skin turgor, normal color, no abnormal lymph nodes, no rash. Neurologic--cranial nerves II through XII grossly intact. Rheumatologic--normal range of motion. Psychiatric--normal affect. Discharge Data Allergies Allergy/AdvReac Type Severity Reaction Status Date / Time No Known Allergies Allergy Mild Verified 03/15/23 09:13 Consultations 07/10/23 03:18 ED Decision to Admit Stat 07/10/23 06:31 Consult Oromaxillofacial Surgery Routine Ordered Studies 07/09/23 23:13 US Neck [US soft tissue head and neck] Stat 07/10/23 01:26 CT chest diagnostic w con Stat CT neck soft tissues [CT soft tissue neck w con] Stat Hospital Course (1) Tonsillar abscess: Plan Left tonsillar abscess- CT soft tissue of the neck with rim-enhancing left tonsillar abscess 1.2 cm Now much improved following IV antibiotics Unasyn, dexamethasone Now patient able to swallow without pain no evidence of stridor or breathing difficulty Will discharge him on oral Augmentin for 5 more days Outpatient follow-up with ENT. Total Time Total Time Spent Total Time Spent (In Minutes): 35 Discharge Plan Discharge Items Patient Disposition: Home - Self-Care Reason For Visit: TONSILLAR ABSCESS Discharge Diagnosis: Tonsillar abscess Activity: Resume your previous activity Non-emergency contact: Primary Care Provider Call non-emergency contact if: you have any medication questions Follow-up/Referrals: Pj Becerril MD [Primary Care Provider] - Diet: Regular Addtl Attending Provider Instructions: please follow up with your PCP in 2 weeks Pending Studies at Discharge: No Stand-Alone Forms: [email or web address], Work/School Release, Smoking Cessation Medications and DC Order Prescriptions: New amoxicillin-pot clavulanate 875-125 mg tablet 1 tab PO BID 5 Days Qty: 10 0RF Continued chlorhexidine gluconate [Peridex] 0.12 % mouthwash 15 ml mucous membrane BID Qty: 473 0RF Discontinued amoxicillin-pot clavulanate 875-125 mg tablet 1 tab PO Q12H Qty: 20 0RF Discharge Orders: Discharge Order (Routine); Ordered 07/11/23 Ordered By: Christy Kwan Admission Data Admit Date/Time: 07/10/23 03:55 Attending Provider: Christy Kwan Admit Provider: Amando Moses Primary Care Provider: Pj Becerril Other Providers: Amando Moses; Sridhar Leach Other Interventions: Discharge Summary Assessment (RN) Last Done: 07/11/23 11:13 Coding Level of Care Code 08281 INP/OBS DISCH >30 MIN Diagnoses Tonsillar abscess J36 Time Spent (min) 35
== END 2023-07-11 13:10 | disposition home or self-care (01) | DRG 153 ==
LOC: ED 22:49 → EDINP 07-10 03:55 → SUATTDRO 07-10 03:55 → 2S 07-10 05:03